=== PATIENT | female | born 1970 | race Caucasian/White ===

== ENCOUNTER 2017-01-21 | Emergency (ER) | payer BC ==
[2017-01-21] MEDS ORDERED: RX INFO: IV CONTRAST WAS GIVEN 1 EACH MISC MISCELLANE PRN (00:03)
[2017-01-21 00:17] LABS: Basophils # (A) 0.1 k/uL (0-0.2); Basophils % (A) 1 %; CH 30.3; CHCM 34.1; Eosinophils # (A) 0.3 k/uL (0-0.7); Eosinophils % (A) 3 %; HCT 35.1 % (34.0-46.0); HDW 2.16; HGB 12.2 gm/dL (11.4-16.0); Luc # (Auto) 0.33; Luc % (Auto) 4; Lymphocytes # (A) 2.4 k/uL (1.0-4.8); Lymphocytes % (A) 27 %; MCH 30.9 pg (25.0-35.0); MCHC 34.7 g/dL (31.0-37.0); Monocytes # (A) 0.3 k/uL (0-1.0); Monocytes % (A) 4 %; Neutrophils # (A) 5.4 k/uL (1.3-7.7); Neutrophils % (A) 62 %; RBC 3.95 m/uL (3.80-5.40); RDW 12.8 % (11.5-15.5); WBC 8.7 k/uL (3.8-10.6); WBC (Perox) 8.92
[2017-01-21] MEDS ORDERED: LABETALOL 5 MG/ML VIAL MDV IVP STA (00:18)
[2017-01-21 00:19] VITALS: RESP 16
[2017-01-21] MEDS ORDERED: tPA (Alteplase) PER PHARMACY 1 EACH MISC MISCELLANE PRN (00:21)
[2017-01-21 00:26] LABS: ALT 26 U/L (9-52); AST 23 U/L (14-36); Alkaline Phosphatase 45 U/L (38-126); Anion Gap 11 mmol/L; Blood Urea Nitrogen 10 mg/dL (7-17); Calcium 9.2 mg/dL (8.4-10.2); Carbon Dioxide 20 mmol/L (22-30); Chloride 103 mmol/L (98-107); Glucose 103 mg/dL (74-99); Non-African American GFR(MDRD) >60 (>60 ml/min/1.73 sqM); Potassium 3.7 mmol/L (3.5-5.1); Sodium 134 mmol/L (137-145); Total Bilirubin 0.5 mg/dL (0.2-1.3); Total Protein 7.2 g/dL (6.3-8.2)
[2017-01-21 00:28] LABS: Alcohol 174 mg/dL; Partial Thromboplastin Time 26.1 sec (22.0-30.0); Prothrombin Time 9.9 sec (9.0-12.0)
--- NOTE | 2017-01-21 00:28 | CT ---
EXAM: CT Head Without Intravenous Contrast CLINICAL HISTORY: Reason: Neuro Deficits TECHNIQUE: Axial computed tomography images of the head/brain without intravenous contrast. CTDI is 57.40 mGy and DLP is 1047.10 mGy-cm. This CT exam was performed using one or more of the following dose reduction techniques: automated exposure control, adjustment of the mA and/or kV according to patient size, and/or use of iterative reconstruction technique. COMPARISON: No relevant prior studies available. FINDINGS: Brain: Unremarkable. No acute hemorrhage. Normal tafoya-white differentiation. No significant mass effect. Ventricles: Unremarkable. No ventriculomegaly. Bones/joints: Unremarkable. No acute fracture. Soft tissues: Unremarkable. Sinuses: Unremarkable as visualized. No acute sinusitis. Mastoid air cells: Unremarkable. IMPRESSION: No acute intracranial abnormality.
--- NOTE | 2017-01-21 00:32 | CT ---
EXAM: CT Head With Intravenous Contrast CLINICAL HISTORY: Reason: Neuro Deficits TECHNIQUE: Axial computed tomography images of the head with intravenous contrast during the arterial phase of enhancement. CTDI is 57.40 mGy and DLP is 1047.10 mGy-cm. This CT exam was performed using one or more of the following dose reduction techniques: automated exposure control, adjustment of the mA and/or kV according to patient size, and/or use of iterative reconstruction technique. COMPARISON: No relevant prior studies available. FINDINGS: Right internal carotid artery: No acute findings. Intracranial segment is patent with no significant stenosis. No aneurysm. Right anterior cerebral artery: Unremarkable. No occlusion or significant stenosis. No aneurysm. Right middle cerebral artery: Unremarkable. No occlusion or significant stenosis. No aneurysm. Right posterior cerebral artery: Unremarkable. No occlusion or significant stenosis. No aneurysm. Right vertebral artery: Unremarkable as visualized. Left internal carotid artery: No acute findings. Intracranial segment is patent with no significant stenosis. No aneurysm. Left anterior cerebral artery: Unremarkable. No occlusion or significant stenosis. No aneurysm. Left middle cerebral artery: Unremarkable. No occlusion or significant stenosis. No aneurysm. Left posterior cerebral artery: Unremarkable. No occlusion or significant stenosis. No aneurysm. Left vertebral artery: Unremarkable as visualized. Basilar artery: Unremarkable. No occlusion or significant stenosis. No aneurysm. IMPRESSION: Unremarkable CTA of the head. EXAM: CT Neck With Intravenous Contrast CLINICAL HISTORY: Reason: Neuro Deficits TECHNIQUE: Axial computed tomography images of the neck with intravenous contrast during the arterial phase of contrast enhancement. CTDI is 57.40 mGy and DLP is 1047.10 mGy-cm. This CT exam was performed using one or more of the following dose reduction techniques: automated exposure control, adjustment of the mA and/or kV according to patient size, and/or use of iterative reconstruction technique. COMPARISON: No relevant prior studies available. FINDINGS: VASCULATURE: Right common carotid artery: Unremarkable. No significant stenosis. No dissection or occlusion. Right internal carotid artery: Unremarkable. Extracranial segment is patent with no significant stenosis. No dissection or occlusion. Right external carotid artery: Unremarkable. No occlusion. Right vertebral artery: Unremarkable. No significant stenosis. No dissection or occlusion. Left common carotid artery: Unremarkable. No significant stenosis. No dissection or occlusion. Left internal carotid artery: Unremarkable. Extracranial segment is patent with no significant stenosis. No dissection or occlusion. Left external carotid artery: Unremarkable. No occlusion. Left vertebral artery: Unremarkable. No significant stenosis. No dissection or occlusion. NECK: Bones/joints: No acute fracture. Soft tissues: Unremarkable as visualized. No mass. CAROTID STENOSIS REFERENCE USING NASCET CRITERIA: % ICA stenosis = (1 - narrowest ICA diameter/diameter of distal cervical ICA) x 100. Mild - <50% stenosis. Moderate - 50-69% stenosis. Severe - 70-94% stenosis. Near occlusion - 95-99% stenosis. Occluded - 100% stenosis. IMPRESSION: Unremarkable CTA of the neck.
[2017-01-21] MEDS ORDERED: ALTEPLASE 48 MG in EMPTY BAG 1 BAG IV STA ×2 (00:33→00:42)
[2017-01-21] MEDS ORDERED: ALTEPLASE BOLUS IV STA (00:33)
--- NOTE | 2017-01-21 00:34 | ED ---
Neuro HPI - General Chief Complaint: Neuro Symptoms/Deficit Stated Complaint: Possible CVA Time Seen by Provider: 01/21/17 00:09 Source: EMS Mode of arrival: EMS Limitations: altered mental status - History of Present Illness Is the patient presenting with stroke symptoms?: Yes Last Known Well Date: 01/20/17 Last Known Well Time: 23:00 Initial Comments: Symptoms started 1110 tonight her noticed that she was not able to talk clear and then she got to the point that she was not able to talk also complaining about left-sided weakness and EMS noticed that there was some facial facial droop. She had about 10 beers tonight and she does smoke she does drink 10 beers daily that is her normal routine past medical history is quite unremarkable she has no history of TIA or CVAs in the past surgical history is consistent for up with the one no history of heart disease. She does complaining about the headache not able to talk no facial droop on arrival to the ER and the left leg is quite quite weak no chest pain or shortness of breath no abdominal pain no frequency urgency dysuria Location: speech, left leg History of same: No (No prior history of for TIA or CVA) Place: home (It happened at home) - Related Data Home Medications: Home Medications Medication Instructions Recorded Confirmed Spironolactone 01/21/17 buPROPion XL [Wellbutrin XL] 01/21/17 Allergies/Adverse Reactions: Allergies Allergy/AdvReac Type Severity Reaction Status Date / Time No Known Allergies Allergy Verified 01/21/17 00:28 Review of Systems ROS Statement: Those systems with pertinent positive or pertinent negative responses have been documented in the HPI. ROS Other: All systems not noted in ROS Statement are negative. General Exam - General Exam Comments Initial Comments: General: The patient is awake and alert, she tried but unable to speak him a she was able to follow the commands remained she is able to comprehend the conversation Skin: Skin is warm and dry and no rashes or lesions are noted. Eye: Pupils are equal, round and reactive to light, extra-ocular movements are intact; there is normal conjunctiva bilaterally. Ears, nose, mouth and throat: There are moist mucous membranes and no oral lesions. Neck: The neck is supple, there is no tenderness Cardiovascular: There is a regular rate and rhythm. No murmur, rub or gallop is appreciated. Respiratory: To auscultation bilateral, decreased breath sounds bilaterally Gastrointestinal: Soft, non-distended, non-tender abdomen without masses or organomegaly noted. There is no rebound or guarding present. Bowel sounds are unremarkable. Back: There is no tenderness to palpation in the midline. There is no obvious deformity. Musculoskeletal: Normal ROM, no tenderness, upper extremities exam seems to be okay no obvious motor or sensory deficits noticed, left lower extremities significantly weak she is not able to hold that even for a second Neurological: Exam is consistent with CVA based on the aphasia, dysarthria and the left leg weakness Psychiatric: Cooperative, appropriate mood & affect, normal judgment. Limitations: altered mental status Stroke MDM - Lab Data Result diagrams: 01/21/17 00:04 01/21/17 00:04 Lab Results 01/21/17 01/21/17 01/21/17 Range/Units 00:04 00:04 00:04 WBC 8.7 (3.8-10.6) k/uL RBC 3.95 (3.80-5.40) m/uL Hgb 12.2 (11.4-16.0) gm/dL Hct 35.1 (34.0-46.0) % MCV 89.0 (80.0-100.0) fL MCH 30.9 (25.0-35.0) pg MCHC 34.7 (31.0-37.0) g/dL RDW 12.8 (11.5-15.5) % Plt Count 277 (150-450) k/uL Neutrophils % 62 % Lymphocytes % 27 % Monocytes % 4 % Eosinophils % 3 % Basophils % 1 % Neutrophils # 5.4 (1.3-7.7) k/uL Lymphocytes # 2.4 (1.0-4.8) k/uL Monocytes # 0.3 (0-1.0) k/uL Eosinophils # 0.3 (0-0.7) k/uL Basophils # 0.1 (0-0.2) k/uL PT (9.0-12.0) sec INR (<1.1) APTT (22.0-30.0) sec Sodium 134 L (137-145) mmol/L Potassium 3.7 (3.5-5.1) mmol/L Chloride 103 (98-107) mmol/L Carbon Dioxide 20 L (22-30) mmol/L Anion Gap 11 mmol/L BUN 10 (7-17) mg/dL Creatinine 0.60 (0.52-1.04) mg/dL Est GFR (MDRD) Af Amer >60 (>60 ml/min/1.73 sqM) Est GFR (MDRD) Non-Af >60 (>60 ml/min/1.73 sqM) Glucose 103 H (74-99) mg/dL Calcium 9.2 (8.4-10.2) mg/dL Total Bilirubin 0.5 (0.2-1.3) mg/dL AST 23 (14-36) U/L ALT 26 (9-52) U/L Alkaline Phosphatase 45 (38-126) U/L Total Creatine Kinase 35 (30-135) U/L CK-MB (CK-2) 0.8 (0.0-2.4) ng/mL CK-MB (CK-2) Rel Index 2.3 Troponin I <0.012 (0.000-0.034) ng/mL Total Protein 7.2 (6.3-8.2) g/dL Albumin 4.4 (3.5-5.0) g/dL Serum Alcohol 174 mg/dL 01/21/17 Range/Units 00:04 WBC (3.8-10.6) k/uL RBC (3.80-5.40) m/uL Hgb (11.4-16.0) gm/dL Hct (34.0-46.0) % MCV (80.0-100.0) fL MCH (25.0-35.0) pg MCHC (31.0-37.0) g/dL RDW (11.5-15.5) % Plt Count (150-450) k/uL Neutrophils % % Lymphocytes % % Monocytes % % Eosinophils % % Basophils % % Neutrophils # (1.3-7.7) k/uL Lymphocytes # (1.0-4.8) k/uL Monocytes # (0-1.0) k/uL Eosinophils # (0-0.7) k/uL Basophils # (0-0.2) k/uL PT 9.9 (9.0-12.0) sec INR 1.0 (<1.1) APTT 26.1 (22.0-30.0) sec Sodium (137-145) mmol/L Potassium (3.5-5.1) mmol/L Chloride (98-107) mmol/L Carbon Dioxide (22-30) mmol/L Anion Gap mmol/L BUN (7-17) mg/dL Creatinine (0.52-1.04) mg/dL Est GFR (MDRD) Af Amer (>60 ml/min/1.73 sqM) Est GFR (MDRD) Non-Af (>60 ml/min/1.73 sqM) Glucose (74-99) mg/dL Calcium (8.4-10.2) mg/dL Total Bilirubin (0.2-1.3) mg/dL AST (14-36) U/L ALT (9-52) U/L Alkaline Phosphatase (38-126) U/L Total Creatine Kinase (30-135) U/L CK-MB (CK-2) (0.0-2.4) ng/mL CK-MB (CK-2) Rel Index Troponin I (0.000-0.034) ng/mL Total Protein (6.3-8.2) g/dL Albumin (3.5-5.0) g/dL Serum Alcohol mg/dL Past Medical History Past Medical History: No Reported History History of Any Multi-Drug Resistant Organisms: None Reported Past Surgical History: No Surgical Hx Reported, Section Past Psychological History: No Psychological Hx Reported Smoking Status: Current every day smoker Past Alcohol Use History: Daily Past Drug Use History: None Reported Course Vital Signs 01/21/17 01/21/17 01/21/17 00:02 00:03 00:21 Respiratory 16 Rate Blood Pressure 203/104 203/104 Blood Pressure 138/70 [Right Arm] EKG is normal sinus rhythm ventricular rate is 91 FL interval is 152 QRS duration is 82 QT/QTc is 368/442 review of this EKG does not reveal any ST elevation or ST depression Critical Care Time Total Critical Care Time: 60 Critical Care Time: He continued to have him dysarthria/aphasia and the left leg weakness we discussed the case with the neurologist alumni relations coordinator Dr. Sara Dr. he himself may headaches since he checked the patient and we reviewed the CT brain without the contrast and CT angiogram no significant findings were noticed on the imaging studies, in in actuality it seems like it [facility] which deals with the speech is affected and the patient and her both agreed to proceed with the TPA, it was explained to the patient and her that the bleeding risk is a 9% and her dying risk is about 3% they understood and agreed and signed the consent. On arrival the patient's blood pressure was normal is 200 systolic after she came back from the CAT scan her systolic blood pressure dropped down to 135 neurologist recommended not to drop the blood pressure 240 below 180 systolic with a fever and a fluid bolus to bring the blood pressure up and go to proceed with the TPA which is waiting for the pharmacy to deliver the TPA. We did discuss with her neurologist services that after TPA patient will be transferred to [facility] and patient and the family is also agreeable Disposition Clinical Impression: CVA (cerebral vascular accident), Aphasia, Left leg weakness Disposition: OTHER INSTITUTION NOT DEFINED Condition: Fair Referrals: None,Stated [Primary Care Provider] - 1-2 days - Out of Hospital Transfer - Req. Specs Out of Hospital Transfer - Requested Specifics: Neurological ICU (She be transferred to [facility])
[2017-01-21 00:37] LABS: Creatine Kinase 35 U/L (30-135)
[2017-01-21 00:50] LABS: Creatine Kinase MB 0.8 ng/mL (0.0-2.4); Troponin I <0.012 ng/mL (0.000-0.034)
[2017-01-21] MEDS ORDERED: SODIUM CHLORIDE 0.9% 500 ML IV STA (01:01)
[2017-01-21 01:35] VITALS: TEMP 97
[2017-01-21 01:40] VITALS: BP 164/90; PULSE 89
[2017-01-22 08:05] LABS: Glucose,Whole Blood 102 mg/dL (75-99)
== END 2017-01-21 01:39 | disposition short-term general hospital (02) ==
LOC: EC
DX: I63.9 Cerebral infarction, unspecified (principal); R29.707 NIHSS score 7; R41.82 Altered mental status, unspecified; F17.200 Nicotine dependence, unspecified, uncomplicated; Z79.899 Other long term (current) drug therapy
CPT/HCPCS: 36415; 93005; 80053; 82550; 82553; 84484; 85025; 85610; 85730; 81025; 80306; 80320; 70496; 70450; 70498; 99291; 96365; J2997; Q9967

== ENCOUNTER → 2017-02-01 | Outpatient (CLI) | payer BC ==
[2017-02-01 15:24] LABS: ALT 54 U/L (9-52); AST 45 U/L (14-36); Alkaline Phosphatase 51 U/L (38-126); Anion Gap 15 mmol/L; Blood Urea Nitrogen 10 mg/dL (7-17); Calcium 9.8 mg/dL (8.4-10.2); Carbon Dioxide 23 mmol/L (22-30); Chloride 102 mmol/L (98-107); Glucose 91 mg/dL (74-99); Non-African American GFR(MDRD) >60 (>60 ml/min/1.73 sqM); Potassium 4.7 mmol/L (3.5-5.1); Sodium 140 mmol/L (137-145); Total Bilirubin 0.6 mg/dL (0.2-1.3); Total Protein 8.4 g/dL (6.3-8.2)
== END | disposition home or self-care (01) ==
LOC: LABWHC1 15:00
PROVIDERS: ATTEND Internal Medicine Cardiovascular Disease
DX: Z01.810 Encounter for preprocedural cardiovascular examination (principal); I10 Essential (primary) hypertension
CPT/HCPCS: 36415; 80053

== ENCOUNTER 2017-02-28 20:21 | Emergency (ER) | payer BC ==
[2017-02-28 20:34] VITALS: BP 183/101; PULSE 75; RESP 18; TEMP 97.5
--- NOTE | 2017-02-28 22:20 | ED ---
General Adult HPI - General Chief complaint: Skin/Abscess/Foreign Body Stated complaint: bruising on leg Time Seen by Provider: 02/28/17 20:58 Source: patient, RN notes reviewed Mode of arrival: ambulatory Limitations: no limitations - History of Present Illness Initial comments: Patient is a 46-year-old female who presents emergency room today with a chief complaint of bruising and swelling to the right upper thigh. She does admit that a week ago she was swimming. She denies any specific injury but she thinks that she may have hit it. Does admit that she's noticed some bruising started a week ago. She states that she's noticed a bruise seems to be larger spreading down the leg. He does admit that there is an area that is tender to the medial aspect. She denies any other complaints or symptoms. Patient denies any recent fever, chills, shortness of breath, chest pain, back pain, abdominal pain, nausea or vomiting, numbness or tingling, dysuria or hematuria, constipation or diarrhea, headaches or visual changes, or any other complaints. - Related Data Home Medications Medication Instructions Recorded Confirmed Spironolactone 01/21/17 buPROPion XL [Wellbutrin XL] 01/21/17 Allergies Allergy/AdvReac Type Severity Reaction Status Date / Time No Known Allergies Allergy Verified 02/28/17 20:34 Review of Systems ROS Statement: Those systems with pertinent positive or pertinent negative responses have been documented in the HPI. ROS Other: All systems not noted in ROS Statement are negative. Past Medical History Past Medical History: CVA/TIA, Hypertension History of Any Multi-Drug Resistant Organisms: None Reported Past Surgical History: No Surgical Hx Reported, Section Past Psychological History: No Psychological Hx Reported Smoking Status: Current every day smoker Past Alcohol Use History: Daily Past Drug Use History: None Reported General Exam - General Exam Comments Initial Comments: General: The patient is awake and alert, in no distress, and does not appear acutely ill. Eye: Pupils are equal, round and reactive to light, extra-ocular movements are intact. No nystagmus. There is normal conjunctiva bilaterally. No signs of icterus. Ears, nose, mouth and throat: There are moist mucous membranes and no oral lesions. Neck: The neck is supple, there is no tenderness or JVD. Cardiovascular: There is a regular rate and rhythm. No murmur, rub or gallop is appreciated. Respiratory: Lungs are clear to auscultation, respirations are non-labored, breath sounds are equal. No wheezes, stridor, rales, or rhonchi. Musculoskeletal: Normal ROM, no tenderness. Strength 5/5. Sensation intact. Pulses equal bilaterally 2+. Neurological: A&O x 3. CN II-XII intact, There are no obvious motor or sensory deficits. Coordination appears grossly intact. Speech is normal. Skin: Patient does have bruising to the medial aspect of the right thigh. Psychiatric: Cooperative, appropriate mood & affect, normal judgment. Limitations: no limitations Course Vital Signs 02/28/17 20:32 Temperature 97.5 F L Pulse Rate 75 Respiratory 18 Rate Blood Pressure 183/101 O2 Sat by Pulse 99 Oximetry Medical Decision Making - Medical Decision Making Patient's ultrasound reviewed and negative for any evidence of a DVT. Does show complex area. States may be hematoma. From unofficial read. Still awaiting radiologist repair patient will be discharged home as there is no blood clot. Disposition Clinical Impression: Hematoma Disposition: HOME SELF-CARE Condition: Good Instructions: Hematoma (ED) Additional Instructions: Please follow-up with family doctor in the next 2 days of symptoms have not improved. Please return to emergency room if the symptoms increase or worsen or for any other concerns. Referrals: Hi Shaikh MD [Primary Care Provider] - 1-2 days Time of Disposition: 22:38
--- NOTE | 2017-02-28 23:45 | US ---
EXAM: US Duplex Right Lower Extremity Veins CLINICAL HISTORY: Right thigh pain. TECHNIQUE: Real-time ultrasound scan of the veins of the right lower extremity with color Doppler flow, spectral waveform analysis and compression. COMPARISON: No relevant prior studies available. FINDINGS: Deep veins: Unremarkable. No DVT in the visualized common femoral, femoral, proximal deep femoral or popliteal veins. The veins are compressible with normal color flow and augmentation. Superficial veins: Unremarkable. No thrombus in the visualized great saphenous vein. Soft tissues: There is a 1.3 x 0.4 x 1.3 cm subcutaneous hematoma in the proximal right thigh in the area of discomfort. No popliteal cyst. IMPRESSION: 1. No evidence of DVT. 2. A 1.3 cm subcutaneous hematoma in the proximal right thigh in the area of discomfort.
== END 2017-02-28 22:43 | disposition home or self-care (01) ==
LOC: EC 20:21
DX: S70.11XA Contusion of right thigh, initial encounter (principal); I10 Essential (primary) hypertension; F17.200 Nicotine dependence, unspecified, uncomplicated; X58.XXXA Exposure to other specified factors, initial encounter
CPT/HCPCS: 99283

== ENCOUNTER → 2017-06-01 | Outpatient (CLI) | payer BC ==
--- NOTE | 2017-06-01 13:39 | MM ---
Reason for exam: screening (asymptomatic). Baseline mammogram. Physical Findings: Nurse did not find any significant physical abnormalities on exam. MG Screening Mammo w CAD Bilateral CC and MLO view(s) were taken. The breast tissue is heterogeneously dense. This may lower the sensitivity of mammography. Finding: There are typically benign calcifications in both breasts. These results were verbally communicated with the patient and result sheet given to the patient on 06/01/17. ASSESSMENT: Benign, BI-RAD 2 RECOMMENDATION: Routine screening mammogram of both breasts in 1 year.
== END | disposition home or self-care (01) ==
LOC: RADMAMWWP 12:44
PROVIDERS: ATTEND Family Medicine
DX: Z12.31 Encounter for screening mammogram for malignant neoplasm of breast (principal)

== ENCOUNTER → 2017-07-05 | Outpatient (CLI) | payer BC ==
[2017-07-05 15:20] LABS: Basophils # (A) 0.1 k/uL (0-0.2); Basophils % (A) 1 %; CH 29.3; CHCM 31.7; Eosinophils # (A) 0.2 k/uL (0-0.7); Eosinophils % (A) 3 %; HCT 39.1 % (34.0-46.0); HDW 1.97; HGB 12.3 gm/dL (11.4-16.0); Luc # (Auto) 0.08; Luc % (Auto) 2; Lymphocytes # (A) 1.4 k/uL (1.0-4.8); Lymphocytes % (A) 28 %; MCH 29.1 pg (25.0-35.0); MCHC 31.4 g/dL (31.0-37.0); MCV 92.8 fL (80.0-100.0); Mean Platelet Volume 7.6; Monocytes # (A) 0.3 k/uL (0-1.0); Monocytes % (A) 6 %; Neutrophils # (A) 2.9 k/uL (1.3-7.7); Neutrophils % (A) 60 %; RBC 4.22 m/uL (3.80-5.40); RDW 13.5 % (11.5-15.5); WBC 4.8 k/uL (3.8-10.6); WBC (Perox) 5.26
== END | disposition home or self-care (01) ==
LOC: LABPAT 14:59
PROVIDERS: ATTEND Obstetrics & Gynecology Obstetrics
DX: Z01.812 Encounter for preprocedural laboratory examination (principal); N92.0 Excessive and frequent menstruation with regular cycle; I10 Essential (primary) hypertension
CPT/HCPCS: 36415; 85025

== ENCOUNTER 2017-07-13 09:46 | Day surgery (SDC) | payer BC ==
[2017-07-06 14:55] VITALS: BMI 23.9
--- NOTE | 2017-07-12 15:58 | P.HPOB ---
History of Present Illness H&P Date: 07/12/17 Chief Complaint: menorrhagia This is a 46yo that presents with c/o HMB. she states menses are regular q month with a heavy flow lasting 5-7 days. all options were reviewed and she elects H DC EA. procedure reviewed and questions answered Review of Systems Constitutional: Reports fatigue Genitourinary: Reports abnormal vaginal bleeding Menstruation: Reports period heavy Psychiatric: Denies anxiety, Denies depression Past Medical History Past Medical History: CVA/TIA, GERD/Reflux, Hypertension Additional Past Medical History / Comment(s): ?stroke in January 2017, on & off problems w/elevated BP, PCOS, heavy frequent periods, currently has abscess tooth-just finished antibiotics-sees for Wednesday History of Any Multi-Drug Resistant Organisms: None Reported Past Surgical History: Section, Orthopedic Surgery, Tubal Ligation Additional Past Surgical History / Comment(s): SANTIAGO, ganglion cyst removed Past Anesthesia/Blood Transfusion Reactions: No Reported Reaction Smoking Status: Never smoker - Past Family History Mother Family Medical History: No Reported History Medications and Allergies Home Medications Medication Instructions Recorded Confirmed Type Spironolactone 50 mg PO DAILY 01/21/17 07/06/17 History Aspirin 81 mg PO DAILY 07/06/17 07/06/17 History Allergies Allergy/AdvReac Type Severity Reaction Status Date / Time No Known Allergies Allergy Verified 07/06/17 13:18 Exam Osteopathic Statement: *. No significant issues noted on an osteopathic structural exam other than those noted in the History and Physical/Consult. - OBG Physical Exam Abdomen: bowel sounds normal Vulva: both: normal Vagina: normal moisture Cervix: normal appearence Adnexa: normal no masses Anus/Rectum: normal perianal skin Assessment and Plan (1) Menorrhagia Narrative/Plan: procedure discussed and questions answered. H DC EA scheduled 07/13 Status: Acute Code(s): N92.0 - EXCESSIVE AND FREQUENT MENSTRUATION WITH REGULAR CYCLE SNOMED Code(s): 115545140
[~2017-07-13 09:46] MED LIST: DEXAMETHASONE SOD PHOSPHATE 10 MG/ML 1 ML VIAL IV ONE; HYDROmorphone 0.5 MG/0.5 ML SYRINGE IVP PRN; LACTATED RINGERS 1,000 ML IV SCH; MIDAZOLAM 2 MG/2 ML VIAL IV PRN; ONDANSETRON 4 MG/2 ML VIAL IVP ONE; Pre Op ABX Message 1 EACH MISC MISCELLANE ONE
[2017-07-13] MEDS ORDERED: LIDOCAINE 1% 20 ML VIAL (10MG/ML) FOR IV START INTRADERMA ONE (10:35)
[2017-07-13] MEDS ORDERED: Acetaminophen-Codeine 300-30mg TAB PO PRN ×2 (11:18)
[2017-07-13] MEDS ORDERED: LIDOCAINE 1% INJ 10MG/ML (20 ML MDV) ONE (11:26)
[2017-07-13] MEDS ORDERED: fentaNYL (PF) 50 MCG/ML 2 ML AMP ONE (11:26)
[2017-07-13] MEDS ORDERED: MIDAZOLAM 2 MG/2 ML VIAL ONE (11:26)
[2017-07-13] MEDS ORDERED: KETOROLAC 30 MG/ML 1 ML VIAL ONE (11:26)
[2017-07-13] MEDS ORDERED: PROPOFOL 10 MG/ML 20 ML VIAL IV ONE (11:26)
--- NOTE | 2017-07-13 12:10 | P.OP ---
Date of Procedure: 07/13/17 Preoperative Diagnosis: menorrhagia Postoperative Diagnosis: same Procedure(s) Performed: Hysteroscopy, dilation and curettage, diagnostic cystoscopy Anesthesia: MAC Surgeon: Liz Christian Estimated Blood Loss (ml): 5 IV fluids (ml): 500 Urine output (ml): 50 Pathology: other (Endometrial curettings) Condition: stable Disposition: PACU Indications for Procedure: menorrhagia Operative Findings: very irregular and scarred endometrial cavity, scarring from prior c section anteriorly. cavity intact, ostia not visulaized secondary to scar tissue. Description of Procedure: Patient was taken operating room after informed consent was obtained. Gen. anesthesia was obtained by the anesthesia department. She was then prepped and draped in normal sterile fashion in the dorsal lithotomy position. A regular catheter was then used to drain clear yellow urine from the bladder. A weighted speculum was placed in the posterior vaginal vault and the anterior lip of the cervix was visualized and grasped with a single-tooth tenaculum. The cervix was then dilated carefully into 18-English. Cystoscopy was placed into the endometrial cavity. Irregular scarred cavity was noted. The cavity was noted to be intact pictures were taken. A sharp curettage was then performed. Given the irregularity of the anterior uterine cavity cystoscopy was performed. Patient had a history of a in the past question of bladder scarring. On cystoscopy the cystoscope was placed to gently through the urethra toward the bladder the bladder bubble was noted in the bladder was intact without injury or irregularity. Clear yellow urine was noted to be draining from both ureteral ostia. At this point the decision was made to not proceed with the endometrial ablation secondary to the scarring within the endometrial cavity. The single-tooth tenaculum was taken off of the anterior lip of the cervix hemostasis was appreciated. All counts were correct 2 patient was taken to the recovery room awake and in stable condition
[2017-07-13 12:28] VITALS: TEMP 97
[2017-07-13 12:45] VITALS: RESP 16
[2017-07-13 13:12] VITALS: BP 145/72; PULSE 100
== END 2017-07-13 13:38 | disposition home or self-care (01) ==
LOC: OR 09:46
PROVIDERS: ATTEND Obstetrics & Gynecology Obstetrics
DX: N92.0 Excessive and frequent menstruation with regular cycle (principal); N85.9 Noninflammatory disorder of uterus, unspecified; I10 Essential (primary) hypertension; L70.9 Acne, unspecified; Z86.73 Personal history of transient ischemic attack (TIA), and cerebral infarction without residual deficits; Z87.891 Personal history of nicotine dependence; Z79.82 Long term (current) use of aspirin; Z79.899 Other long term (current) drug therapy
CPT/HCPCS: 58558; 81025; 88305; J2250; J1100; J2405; J2001; J3010; J1885; J2704